=== PATIENT | female | born 1950 | race Caucasian/White ===

== ENCOUNTER 2024-01-10 06:18 | Outpatient (CLI) | payer BC, MEDICARE | END 2024-01-10 23:59 | disposition home or self-care (01) | LOC: MRI02 06:18 | PROVIDERS: ATTEND Family Medicine Sports Medicine | DX: M84.369A Stress fracture, unspecified tibia and fibula, initial encounter for fracture (principal); M19.071 Primary osteoarthritis, right ankle and foot; M76.61 Achilles tendinitis, right leg; M25.571 Pain in right ankle and joints of right foot; M79.671 Pain in right foot | CPT/HCPCS: 73721 ==